=== PATIENT | female | born 1975 | race Caucasian/White ===

== ENCOUNTER 2016-11-30 05:50 | Inpatient (IN) | payer MEDICAID ==
[~2016-11-30] VITALS: Ht 160 cm; Wt 87.6 kg
[2016-11-30 07:05] LABS: BASOPHIL % 0.1 % (0-2); PLATELET COUNT 187 x10^3mcL (130-400); RED CELL DISTRIBUTION WIDTH 13.7 % (11.5-14.5)
[2016-11-30 07:11] LABS: CALCIUM 8.8 mg/dL (8.5-10.1); CARBON DIOXIDE 23.1 mmol/L (21-32); CHLORIDE SERUM 104 mmol/L (98-107); CREATININE SERUM 0.9 mg/dL (0.6-1.0); GFR1 > 60 mL/min; GLUCOSE SERUM 110 mg/dL (74-106); POTASSIUM SERUM 3.1 mmol/L (3.5-5.1); SODIUM SERUM 139 mmol/L (136-145)
[2016-11-30 07:17] LABS: ALBUMIN 3.5 g/dL (3.4-5.0); ALKALINE PHOSPHATASE 82 U/L (46-116); ALT/SGPT 26 U/L (14-59); AST/SGOT 12 U/L (15-37); BILIRUBIN TOTAL 2.6 mg/dL (0.20-1.00); LIPASE 83 IU/L (73-393); MAGNESIUM 1.7 mg/dL (1.8-2.4); TOTAL PROTEIN, SERUM 7.5 g/dL (6.4-8.2)
[2016-11-30 08:28] LABS: CHOLESTEROL/HDL RATIO 3.1
[2016-11-30 08:36] LABS: FREE T4 1.05 ng/dL (0.76-1.46); FREE THYROXINE INDEX 3.4 ug/dL (1.4-4.5); T4(THYROXINE) 9.8 ug/dL (4.7-13.3)
[2016-11-30 09:08] LABS: UA SPECIFIC GRAVITY 1.015 (1.005-1.035); microscopic required? YES; urine erythrocyte NEGATIVE (NEGATIVE)
[2016-11-30 09:19] LABS: AMPHETAMINE QUAL UR NONE DETECTED (NEG <=1000)
[2016-11-30 09:27] LABS: T3 TOTAL 1.23 ng/mL
[2016-11-30 11:19] VITALS: BP 110/70
[2016-11-30 13:35] VITALS: BP 124/68
[2016-11-30 17:33] VITALS: BP 112/55
[2016-11-30 21:23] VITALS: BP 123/78
[2016-12-01 05:20] VITALS: BP 101/55
[2016-12-01 06:29] LABS: PLATELET COUNT 160 x10^3mcL (130-400); RED CELL DISTRIBUTION WIDTH 13.9 % (11.5-14.5)
[2016-12-01 06:45] LABS: CALCIUM 8.3 mg/dL (8.5-10.1); CARBON DIOXIDE 26.1 mmol/L (21-32); CHLORIDE SERUM 109 mmol/L (98-107); CREATININE SERUM 0.8 mg/dL (0.6-1.0); GFR1 > 60 mL/min; GLUCOSE SERUM 121 mg/dL (74-106); MAGNESIUM 1.8 mg/dL (1.8-2.4); PHOSPHOROUS 2.7 mg/dL (2.5-4.9); POTASSIUM SERUM 4.3 mmol/L (3.5-5.1); SODIUM SERUM 141 mmol/L (136-145)
[2016-12-01 09:30] VITALS: BP 125/72
[2016-12-01 10:11] LABS: BAND NEUTROPHIL 4 % (0-10); BASOPHIL 0 % (0-2); MONOCYTE 3 % (0-7); SEGMENTED NEUTROPHILS 83 % (37-75)
[2016-12-01 10:58] VITALS: Ht 160 cm; Wt 87.6 kg
[2016-12-01 13:20] VITALS: BP 113/73
[2016-12-01 18:05] VITALS: BP 107/63
[2016-12-01 20:56] VITALS: BP 121/73
[2016-12-02 06:56] LABS: BASOPHIL % 0.5 % (0-2); PLATELET COUNT 152 x10^3mcL (130-400); RED CELL DISTRIBUTION WIDTH 14.3 % (11.5-14.5)
[2016-12-02 07:07] LABS: ALKALINE PHOSPHATASE 59 U/L (46-116); ALT/SGPT 28 U/L (14-59); AST/SGOT 20 U/L (15-37); BILIRUBIN TOTAL 1.4 mg/dL (0.20-1.00); CALCIUM 8.2 mg/dL (8.5-10.1); CARBON DIOXIDE 27.3 mmol/L (21-32); CHLORIDE SERUM 107 mmol/L (98-107); CREATININE SERUM 0.8 mg/dL (0.6-1.0); GFR1 > 60 mL/min; GLUCOSE SERUM 93 mg/dL (74-106); POTASSIUM SERUM 4.2 mmol/L (3.5-5.1); SODIUM SERUM 140 mmol/L (136-145)
[2016-12-02 07:08] LABS: ALBUMIN 2.3 g/dL (3.4-5.0)
[2016-12-02 07:10] VITALS: BP 131/83
[2016-12-02 07:26] LABS: MAGNESIUM 1.7 mg/dL (1.8-2.4); PHOSPHOROUS 2.7 mg/dL (2.5-4.9)
[2016-12-02 09:30] VITALS: BP 136/84
[2016-12-02 17:10] VITALS: BP 134/86
[2016-12-02 20:59] VITALS: BP 132/82
[2016-12-03 06:01] VITALS: BP 115/75
[2016-12-03 06:27] LABS: CALCIUM 8.5 mg/dL (8.5-10.1); CARBON DIOXIDE 27.1 mmol/L (21-32); CHLORIDE SERUM 104 mmol/L (98-107); CREATININE SERUM 0.8 mg/dL (0.6-1.0); GFR1 > 60 mL/min; GLUCOSE SERUM 89 mg/dL (74-106); MAGNESIUM 1.8 mg/dL (1.8-2.4); PHOSPHOROUS 4.1 mg/dL (2.5-4.9); POTASSIUM SERUM 3.8 mmol/L (3.5-5.1); SODIUM SERUM 140 mmol/L (136-145)
[2016-12-03 06:30] LABS: BASOPHIL % 0.3 % (0-2); PLATELET COUNT 161 x10^3mcL (130-400); RED CELL DISTRIBUTION WIDTH 13.9 % (11.5-14.5)
[2016-12-03 10:06] VITALS: BP 125/85
[2016-12-03] MEDS ORDERED: KEF500 PO (11:42)
[2016-12-03] MEDS ORDERED: CLEOCIN HCL300 MG PO (11:42)
[2016-12-03] MEDS ORDERED: LAC PO (11:43)
[2016-12-03] MEDS ORDERED: COLACE100 MG PO (11:43)
[2016-12-03] MEDS ORDERED: NORCO1 TA1 PO (11:44)
[2016-12-03 12:25] VITALS: BP 125/85
== END 2016-12-03 14:00 | disposition home or self-care (01) | DRG 225 ==
LOC: ED 05:50 → MU 07:39 → DU 07:39 → MU 12-01 09:15
PROVIDERS: Emergency Medicine; Family Medicine; Surgery; ADMIT Family Medicine
PROC: 0DTJ4ZZ Resection of Appendix, Percutaneous Endoscopic Approach (ICD-10-PCS; principal; 2016-11-30 13:30)
DX: K35.3 Acute appendicitis with localized peritonitis (principal); N17.0 Acute kidney failure with tubular necrosis; E43 Unspecified severe protein-calorie malnutrition; E87.6 Hypokalemia; E83.42 Hypomagnesemia; E83.39 Other disorders of phosphorus metabolism; E87.8 Other disorders of electrolyte and fluid balance, not elsewhere classified; E78.5 Hyperlipidemia, unspecified; K76.0 Fatty (change of) liver, not elsewhere classified; Z68.35 Body mass index [BMI] 35.0-35.9, adult
CPT/HCPCS: 83880; 84439; 94150; G0480; J0330; J1170; J2270; J2405; J2543; J2704; J2710; J3010; J3490; J7030; J7120; Q0092

== ENCOUNTER 2018-01-25 09:41 | Emergency (ER) | payer MEDICAID ==
[~2018-01-25] VITALS: Ht 160 cm; Wt 88.6 kg
[~2018-01-25 09:41] MED LIST: CLEOCIN HCL300 MG PO; COLACE100 MG PO; KEF500 PO; LAC PO; NORCO1 TA1 PO
[2018-01-25 09:50] VITALS: Ht 160 cm; Wt 88.6 kg
[2018-01-25 10:41] LABS: BASOPHIL % 0.5 % (0-2); PLATELET COUNT 205 x10^3mcL (130-400)
[2018-01-25 10:45] LABS: RED CELL DISTRIBUTION WIDTH 15.2 % (11.5-14.5)
[2018-01-25 11:32] VITALS: BP 124/79
== END 2018-01-25 11:32 | disposition home or self-care (01) ==
LOC: ED 09:41
PROVIDERS: Emergency Medicine
DX: O26.899 Other specified pregnancy related conditions, unspecified trimester (principal); N93.8 Other specified abnormal uterine and vaginal bleeding; Z3A.00 Weeks of gestation of pregnancy not specified
CPT/HCPCS: 36415